=== PATIENT | male | born 1980 | race Caucasian/White ===

== ENCOUNTER → 2017-07-11 | Outpatient (CLI) | payer OTHER ==
--- NOTE | 2017-07-11 15:58 | DIAGNOSTIC IMAGING REPORT ---
L RIBS UNILATERAL MIN 2 VIEWS CLINICAL HISTORY: Left sided rib pain. COMPARISON STUDY: No previous studies for comparison. FINDINGS: No acute left sided rib fracture is identified. There is no left pneumothorax. Left lung is clear. There is no left pleural effusion. IMPRESSION: No left-sided rib fractures identified. Electronically signed by: Vipin Meza M.D. 07/11/2017 3:57 PM Dictated Date/Time: 07/11/2017 3:56 PM
--- NOTE | 2017-07-11 15:59 | DIAGNOSTIC IMAGING REPORT ---
CHEST 2 VIEWS ROUTINE CLINICAL HISTORY: Left-sided chest pain. COMPARISON STUDY: No previous studies for comparison. FINDINGS: Lung volumes are normal. Lungs are clear. No pneumothorax or pleural effusion is noted. Pulmonary vascularity is normal. Cardiomediastinal silhouette is normal. IMPRESSION: No acute cardiopulmonary findings. Electronically signed by: Vipin Meza M.D. 07/11/2017 3:58 PM Dictated Date/Time: 07/11/2017 3:57 PM
== END | disposition home or self-care (01) ==
LOC: C.RAD1850 14:52
PROVIDERS: ATTEND Family Medicine
DX: R07.9 Chest pain, unspecified (principal)